=== PATIENT | male | born 1995 | race Caucasian/White ===

== ENCOUNTER 2017-04-30 12:06 | Emergency (ER) | payer SELFPAY ==
[~2017-04-30] VITALS: Ht 175.3 cm; Wt 55.6 kg
[~2017-04-30 12:06] MED LIST: INDOCIN50 MG PO
[2017-04-30] MEDS ORDERED: FIORICET 50-301 EAC1 PO (16:39)
[2017-04-30] MEDS ORDERED: ZOFRAN4 MG PO (16:39)
[2017-04-30 16:49] VITALS: BP 126/73
== END 2017-04-30 16:50 | disposition home or self-care (01) ==
LOC: EME 12:06
DX: R51 Headache (principal); F17.200 Nicotine dependence, unspecified, uncomplicated
CPT/HCPCS: 99281; 99284; J1200; J1885; J2405; J2765; J7030